=== PATIENT | male | born 1980 | race Hispanic/Latino ===

== ENCOUNTER 2023-01-02 18:42 | Emergency (ER) | payer SELFPAY ==
[2023-01-02 18:43] VITALS: BP 108/75; PULSE 67; RESP 16; TEMP 36.9; O2SAT 99; BMI 30.1
--- NOTE | 2023-01-02 20:25 | EDS_ITS ---
HPI History of Present Illness Chief Complaint: Flank Pain Narrative Narrative: Patient is a 42-year-old male who is presenting to the ER with chief complaint of 2 to 3 weeks of lower back pain. Patient speaks Bengali strictly, patient's friend at bedside is an excellent surgical technician and speaks Bengali as well. Patient was seen at [facility] ER 2 weeks ago with bilateral lower back pain and difficulty urinating. Patient had a urine sample that showed no infection, no diabetes, no hematuria. Patient was sent home with prescription for lidocaine patches. Patient says that no one ever talked to him about using ice, stretching so he has not done any of that since the last 2 weeks. He has been using Naprosyn twice a day. Patient is back in the ER 2 weeks later because his lower back pain has not improved. Patient works daily in [employer]. Patient states that he intermittently will have a hard time starting his stream with urinating, but he has no frequency urgency or burning. Patient has no rash. No abdominal pain, nausea or vomiting. Patient has no family doctor. Patient was not referred to urology. Patient is here because his pain is not completely relieved or gone at this time. No new injury. No fever, chills, chest pain, shortness of breath. No radiculopathy or paresthesias into lower extremities. PFSH PFSH Medical History no medical history Allergy/AdvReac Type Severity Reaction Status Date / Time No Known Allergies Allergy Verified 01/02/23 18:47 Surgical History no surgical history Social History Smoking Status: Never smoker ROS ROS ED ROS Narrative REVIEW OF SYSTEMS: Unless otherwise stated in this report the patient's positive and negative responses for review of systems for constitutional, eyes, ENT, cardiovascular, respiratory, gastrointestinal, neurological, , musculoskeletal, and integument systems and related systems to the presenting problem are either stated in the history of present illness or were not pertinent or were negative for the symptoms and/or complaints related to the presenting medical problem. EXAM Physical Exam Narrative Exam Narrative: Vital signs reviewed and patient is not hypoxic. General: The patient appears well and in no apparent distress. Patient is resting comfortably on cart. Not toxic, lethargic, or listless. Skin: Warm, dry, no pallor noted. There is no rash noted. Head: Normocephalic, atraumatic Eye: Normal conjunctiva, no drainage, EOMI. PERRL. Ears, Nose, Mouth, and Throat: oral mucosa is moist. Nares patent. Mouth without vesicles. Cardiovascular: Regular Rate and Rhythm, no murmurs, gallops, or rubs Respiratory: Patient is in no distress, no accessory muscle use, lungs are clear to auscultation, no wheezing, rales or rhonchi Back: Patient has mild tenderness to palpation to the soft tissue the paralumbar area from L3-L5, no tenderness to palpation to bilateral piriformis muscle. No signs of saddle esthesia or cauda equina. Patient has negative straight leg raising test bilateral. No rash otherwise non-tender, no CVA tenderness bilaterally to percussion. NO CTLS midline or paraspinal tenderness to palpation besides a forementioned.. GI: Soft, no tenderness to palpation, no masses appreciated. No rebound, guardin g, or rigidity noted. Patient denies any pain to penis or testicles, no suprapubic tenderness palpation. Musculoskeletal: The patient has full range of motion of all extremities and joints with no difficulty. Patient has no motor, no sensory deficits. Neurological: A&O x4, normal speech, no focal neurological deficits. Psychiatric: Cooperative Const Vital Signs: 01/02/23 18:43 Temperature 98.4 F Temperature Source Temporal Pulse Rate 67 Respiratory Rate 16 Blood Pressure 108/75 Blood Pressure Mean 86 Pulse Ox 99 Oxygen Delivery Method Room Air MDM MDM MDM Narrative Medical decision making narrative: A lot of time was spent with educated patient on how to use ice, stretching 3 times a day, following up with chiropractor and establishing PCP or the health department. Patient is also educated on alternating Tylenol and anti- inflammatories every 4-6 hours help with pain. Patient says that no one ever told him he had to use ice or stretching, so he did not. Patient was also referred to urology since he is having a harder time starting his stream. Patient's chief concern was a kidney stone. Patient has no signs or symptoms at this time to suggest kidney stone. Patient's pain stays in the lower back, no radiation to flank, groin or testicles unilateral or bilateral. Education on kidney stone was done at bedside as well. No questions discharge. Discharge Plan Triage Chief Complaint: Flank Pain ED Provider: Osmany Cottrell Dx/Rx/DC Orders Clinical Impression: Chronic lumbosacral pain, Chronic back pain Instructions: Back Exercises: Lower Back Rotation, Back Exercises: Lower Back Stretch, Lumbar Rotation, ED Back Care Tips, ED Back Pain (Acute or Chronic), ED Chronic Pain Primary Care Provider: Care Physician,No Primary Referrals: Filippo Herrera MD [Med Staff - Active Staff] - Care Physician,No Primary [Primary Care Provider] - Activity Restrictions/Additional Instructions: Ice 20 minutes on, 20 minutes off. Use lumbar stretching as shown at bedside 3 times a day for the next 1-2 weeks. Alternate Tylenol and anti-inflammatories every 6 hours to help with pain. Follow-up with urology as discussed. A chiropractor may help with lumbar pain. Establish PCP with the health department or PCP. Disposition Disposition: Home, Self Care Discharge Date/Time: 01/02/23 20:49
== END 2023-01-02 20:49 | disposition home or self-care (01) ==
PROVIDERS: Emergency Provider Emergency Medicine; Visit Provider Emergency Medicine
DX: G89.29 Other chronic pain (principal); M54.50 Low back pain, unspecified
CPT/HCPCS: 99282